=== PATIENT | female | born 1965 | race Caucasian/White ===

== ENCOUNTER 2020-04-03 00:10 | Emergency (ER) | payer MEDICARE, OTHER, SELFPAY ==
[2020-04-03] VITALS (9 sets, daily range): BP systolic 118–149; BP diastolic 64–94; PULSE 83–93; RESP 17–24; TEMP 36.4; O2SAT 94–98
--- NOTE | 2020-04-03 00:17 | DI.CT.S_ITS ---
PROCEDURE: CT HEAD/BRAIN WO CON INDICATIONS: Vertigo and headache TECHNIQUE: Noncontrast 4.5 mm thick angled axial sections acquired from the foramen magnum to the vertex, with coronal and sagittal reformats. For radiation dose reduction, the following was used: automated exposure control, adjustment of mA and/or kV according to patient size. COMPARISON: None. FINDINGS: Image quality: Excellent. CSF spaces: Basal cisterns are patent. No extra-axial fluid collections. Ventricles are normal in size and shape. Brain: No midline shift. No intracranial masses or hemorrhage. Mcwilliams-white matter interface is normal. Skull and face: Calvarium and visualized facial bones are intact, without suspicious lesions. Sinuses: Visualized sinuses and mastoids are clear. IMPRESSION: 1. No acute intracranial process. The above findings are concordant with preliminary report. Dictated by: Indigo Holbrook M.D. on 04/03/2020 at 7:58 Approved by: Indigo Holbrook M.D. on 04/03/2020 at 8:01
--- NOTE | 2020-04-03 00:27 | ED_ITS ---
HPI - General Adult General Chief complaint: Headache Stated complaint: Headache x1day w/ vertigo Time Seen by Provider: 04/03/20 00:12 Source: patient Mode of arrival: EMS Limitations: no limitations History of Present Illness HPI narrative: Patient is a 55-year-old female. Longstanding chronic medical issues to include a heart transplant back in 2014. She is currently on anti- rejection medications. Patient states that she has had headaches in the past especially since her heart transplant. She also states that she has had a stroke in the past. States that the stroke was associated around the time that she had her heart transplant. She stated that they provider. That she potentially had a clot in the LVAD which caused her stroke. She has minimal residual issues from this. She states that last evening about 930 she started having nausea and vertigo. She does describe it as a room spinning sensation. Several hours later she developed a headache. She states that her headache feels just like 1 of her prior headaches. It was not a sudden onset. Denies any fevers per she states that what makes this headache somewhat different is that she is also having vertigo sensation. She has had vertigo in the past but never the to associated together. She stated that if it were not for the 2 being associated give that she would not have come into the emergency department given her prior history of a stroke she was concerned about this and that is why she called 911 to bring her in. she did receive Zofran by EMS prior to arrival. He states that this medication has greatly improved her nausea. She also feels like her vertigo was somewhat improving. Related Data Home Medications Medication Instructions Recorded Confirmed alendronate 70 mg tablet 70 mg PO QWEEK 01/12/19 10/28/19 aspirin 81 mg tablet,delayed 81 mg PO DAILY 01/12/19 10/28/19 release calcium carbonate 500 mg calcium 500 mg PO BID cap 01/12/19 10/28/19 (1,250 mg) capsule cholecalciferol (vitamin D3) 25 1,000 unit PO DAILY 01/12/19 10/28/19 mcg (1,000 unit) capsule clotrimazole 10 mg PO QID 01/12/19 10/28/19 exemestane 25 mg tablet 25 mg PO DAILY 01/12/19 10/28/19 gabapentin 600 mg tablet 600 mg PO TID 01/12/19 10/28/19 leuprolide (3 month) 22.5 mg (3 22.5 mg IM [id number] 01/12/19 10/28/19 month) intramuscular syringe kit magnesium plus protein 133 mg PO DAILY 01/12/19 10/28/19 mycophenolate mofetil 500 mg tablet 1,000 mg PO BID 01/12/19 10/28/19 pantoprazole 40 mg tablet,delayed 40 mg PO DAILY 01/12/19 10/28/19 release potassium chloride 20 mEq 30 meq PO DAILY tab 01/12/19 10/28/19 tablet,extended release pravastatin 20 mg tablet 20 mg PO DAILY 01/12/19 10/28/19 prednisone 10 mg tablet 15 mg PO DAILY tab 01/12/19 10/28/19 sulfamethoxazole 400 1 tab PO DAILY 01/12/19 10/28/19 mg-trimethoprim 80 mg tablet tacrolimus 1 mg capsule 2 mg PO Q12H 01/12/19 10/28/19 tacrolimus 1 mg capsule 2.5 mg PO .QHS cap 01/12/19 10/28/19 torsemide 20 mg tablet 40 mg PO DAILY 01/12/19 10/28/19 Previous Rx's Medication Instructions Recorded sertraline 100 mg tablet 150 mg PO DAILY #45 tab 01/12/19 Allergies Allergy/AdvReac Type Severity Reaction Status Date / Time amiodarone AdvReac Severe lung Verified 06/21/19 13:46 problems long term care administrator carvedilol [From [facility]] AdvReac Severe anaphylaxis Verified 06/21/19 13:46 Review of Systems Constitutional Constitutional: Denies body ache(s), Denies chills, Denies fever(s) and Reports headache(s) Eyes Eyes: Denies change in vision ENT Ears, Nose, Mouth, and Throat: Reports vertigo, Reports headache(s), Reports tinnitus (This is not new) and Denies sinus pain Cardiovascular Cardiovascular: Denies chest pain, Denies rapid heart rate and Denies dyspnea Respiratory Respiratory: Denies dyspnea Gastrointestinal Gastrointestinal: Denies abdominal pain, Reports nausea and Denies vomiting Genitourinary Genitourinary: Denies dysuria Genitourinary: Denies dysuria Musculoskeletal Musculoskeletal: Denies arthralgias and Denies myalgias Integumentary/Breasts Skin/Breast: Denies lesions and Denies rash Neurologic Neurologic: Denies abnormal movements, Denies abnormal speech, Reports vertigo and Reports headache(s) Hematologic/Lymphatic Hematologic/Lymphatic: Denies easy bleeding and Denies easy bruising Allergic/Immunologic Allergic/Immunologic: Denies urticaria Patient History Medical History Breast cancer (Acute) Chemotherapy-induced cardiomyopathy (Acute) Heart transplant recipient (Acute) Insomnia (Chronic) Obesity (BMI 30-39.9) (Chronic) Obstructive sleep apnea (Chronic) Surgical History (Updated 10/28/19 @ 22:59 by KEYSHAWN Lopez) History of left ventricular assist device (LVAD) (Acute) Social History Smoking Status: Former smoker Smoking Status: Former smoker Exam Initial Vital Signs Initial Vital Signs: Vital Signs Temperature 97.6 F 04/03/20 00:17 Pulse Rate 90 04/03/20 00:17 Respiratory Rate 20 04/03/20 00:17 Blood Pressure 131/77 04/03/20 00:17 Pulse Oximetry 97 04/03/20 00:17 Const General: cooperative, comfortable and well developed Limitations: mental status not altered HENLA Head: normal to inspection and normocephalic Nose: external nose normal Eyes General: appearance normal, both eyes and all related structures Pupils: PERRL EOM: EOM intact bilaterally Resp Effort & Inspection: normal respiratory effort Auscultation: clear to auscultation bilaterally Cardio Rate: regular rate Rhythm: regular rhythm GI Inspection: non-distended Palpation: soft Skin Lesions: no lesions Rashes: no rashes Neuro General: patient alert, patient awake and patient oriented x3 Cranial Nerves: CN's II-XI intact bilaterally Cognition: normal cognition Speech: speech normal Motor: muscle tone normal throughout Sensory Exam: no sensory deficits noted Extrem General: normal to inspection and capillary refill normal Psych Appearance: grossly normal and well kempt Scores GCS [place] coma scale eye opening: Spontaneous [place] coma scale verbal response: Orientated [place] coma scale motor response: Obey commands [place] coma scale total score: 15 NIH Stroke Scale Level of Conciousness: Alert, keenly responsive Ask month/age: Answers both questions correctly. Open/close eyes, close hand: Performs both tasks correctly Best gaze horizontal: Normal Visual louise: No visual loss Facial palsy: Normal symetrical movement Left arm drift: No drift for full 10 sec Right arm drift: No drift for full 10 sec Left leg drift: No drift for full 10 sec Right leg drift: No drift for full 10 sec Limb ataxia: Absent Sensory on face/arms/legs: Normal, no sensory loss Best language: No aphasia, normal Dysarthria: Normal Extinction or inattention: No abnormality Total NIH Stroke scale score: 0 Course Orders Ordered: ED Orders 04/03/20 00:17 CT head/brain wo con Stat 04/03/20 00:28 EKG-12 Lead Stat 04/03/20 00:45 Complete Blood Count AUTO DIFF Stat Comprehensive Metabolic Panel Stat Partial Thromboplastin Time Stat Prothrombin Time INR Stat Discontinued Medications Diphenhydramine HCl (Benadryl) 25 mg IV NOW ONE Stop: 04/03/20 00:28 Last Admin: 04/03/20 00:42 Dose: 25 mg Documented by: GRACIA Metoclopramide HCl (Reglan) 10 mg IV NOW ONE Stop: 04/03/20 00:28 Last Admin: 04/03/20 00:42 Dose: 10 mg Documented by: GRACIA Vital Signs Vital signs: Vital Signs - 8 hr 04/03/20 00:17 04/03/20 00:23 04/03/20 00:30 Temperature 97.6 F Pulse Rate 90 83 84 Respiratory Rate 20 Blood Pressure 131/77 Pulse Oximetry 97 98 97 04/03/20 01:03 04/03/20 01:05 04/03/20 01:30 Temperature Pulse Rate 92 H 93 H 93 H Respiratory Rate 24 18 Blood Pressure 149/94 H Pulse Oximetry 98 96 94 04/03/20 01:31 04/03/20 02:00 04/03/20 02:59 Temperature Pulse Rate 92 H 91 H Respiratory Rate 17 24 Blood Pressure 118/64 122/72 118/64 Pulse Oximetry 94 96 Medical Decision Making Lab Data Lab results reviewed: Yes I reviewed the patient's lab results. Result diagrams: 04/03/20 00:45 04/03/20 00:45 Labs: Lab Results 04/03/20 04/03/20 04/03/20 Range/Units 00:45 00:45 00:45 WBC 9.6 (4.5-11.0) X10^3/uL RBC 3.71 L (4.0-5.2) X10^6/uL Hgb 11.4 L (12.0-16.0) g/dL Hct 33.7 L (36-46) % MCV 90.8 (80-100) fL MCH 30.6 (26-34) PG MCHC 33.7 (30-36) % RDW 12.9 (11.6-14.8) % Plt Count 239 (150-400) X10^3/uL Neut % (Auto) 79.1 H (50-75) % Lymph % (Auto) 12.3 L (25-40) % [place] % (Auto) 5.8 (3-14) % Eos % (Auto) 1.6 L (2-4) % Baso % (Auto) 1.2 (0-2) % Neut # (Auto) 7600 H (4094-0899) /uL Lymph # (Auto) 1200 (5648-0037) /uL [place] # (Auto) 600 (0-900) /uL Eos # (Auto) 200 (0-450) /uL Baso # (Auto) 100 (0-100) /uL PT 11.3 (10.1-12.7) SECONDS INR 1.0 (0.9-1.3) APTT 31 (26.4-36.2) SECONDS Sodium 137 (137-145) mmol/L Potassium 3.9 (3.4-5.1) mmol/L Chloride 103 (98-107) mmol/L Carbon Dioxide 26 (22-32) mmol/L BUN 40 H (7-17) mg/dL Creatinine 1.44 H (0.52-1.04) mg/dL Estimated GFR 38.1 L (>60) mL/min BUN/Creatinine Ratio 27.8 H (6-22) Glucose 122 H (70-100) mg/dL Calcium 9.4 (8.4-10.2) mg/dL Total Bilirubin 0.4 (0.2-1.3) mg/dL AST 25 (14-36) IU/L ALT 16 (<35) IU/L Alkaline Phosphatase 66 (38-126) U/L Total Protein 7.1 (6.3-8.2) g/dL Albumin 4.2 (3.5-5.0) g/dL Globulin 2.9 (1.7-4.1) g/dL Albumin/Globulin Ratio 1.4 (1.0-2.8) Imaging Data CT scan - head: Radiologist's Impression: No acute abnormalities ECG Data Attestation: I personally reviewed and interpreted this ECG as follows: Prior ECG tracings: not available for review Interpretation: Sinus rhythm Ventricular rate 83 Normal axis Normal QRS Normal QTC No ST T wave changes MDM Narrative Medical decision making narrative: Patient's symptoms seem to be improving since the onset earlier this evening. Her vertigo was positional. She could reproduce it by laying her head back. I was better when she was sitting up. She has a normal neurologic exam otherwise. Her head CT was unremarkable. Rickie camacho reports a vast improvement of her headache and almost complete resolution of her symptoms after further medications here in the ER. Low suspicion for CVA. Low suspicion for TIA. Low suspicion for subarachnoid hemorrhage. Patient states she feels comfortable going home. She was given return precautions and follow-up instructions. She expressed understanding and agreement. Discharge Plan Departure Patient Disposition: Home Clinical Impression: Vertigo Migraine Qualifiers: Migraine type: unspecified Status migrainosus presence: without status migrainosus Intractability: not intractable Qualified Code(s): G43.909 - Migraine, unspecified, not intractable, without status migrainosus Discharge Date/Time: 04/03/20 03:01 Instructions: DI for Migraine Activity Restrictions/Additional Instructions: Continue to take all of your medications as directed. Contact your primary provider for follow-up. Return to the emergency department for any new or wor sening symptoms Prescriptions: No Action prednisone 10 mg tablet 15 mg PO DAILY RF: 0 gabapentin 600 mg tablet 600 mg PO TID RF: 0 torsemide 20 mg tablet 40 mg PO DAILY RF: 0 sulfamethoxazole-trimethoprim 400-80 mg tablet 1 tab PO DAILY RF: 0 calcium carbonate 500 mg calcium (1,250 mg) capsule 500 mg PO BID RF: 0 alendronate 70 mg tablet 70 mg PO QWEEK RF: 0 aspirin 81 mg tablet,delayed release (DR/EC) 81 mg PO DAILY RF: 0 mycophenolate mofetil 500 mg tablet 1,000 mg PO BID RF: 0 exemestane 25 mg tablet 25 mg PO DAILY RF: 0 pantoprazole 40 mg tablet,delayed release (DR/EC) 40 mg PO DAILY RF: 0 Lupron Dep[place] (3 month) 22.5 mg syringe kit 22.5 mg IM [id number] RF: 0 pravastatin 20 mg tablet 20 mg PO DAILY RF: 0 tacrolimus 1 mg capsule 2 mg PO Q12H RF: 0 tacrolimus 1 mg capsule 2.5 mg PO .QHS RF: 0 cholecalciferol (vitamin D3) 1,000 unit capsule 1,000 unit PO DAILY RF: 0 potassium chloride 20 mEq tablet extended release 30 meq PO DAILY RF: 0 clotrimazole tablet 10 mg PO QID RF: 0 magnesium plus protein 133 mg PO DAILY RF: 0 sertraline 100 mg tablet 150 mg PO DAILY Qty: 45 RF: 3 Referrals: Shawn Chance MD [Primary Care Provider] -
[2020-04-03] MEDS: METOCLOPRAMIDE 10 MG/2 ML INJ IV (00:42)
[2020-04-03] MEDS: diphenhydrAMINE 50 MG/ML VIAL 25 MG IV (00:42)
[2020-04-03 00:59] LABS: Add Manual Diff / Slide Review NO; Basophils Absolute Auto 100 /uL (0-100); Basophils Percent Auto 1.2 % (0-2); Eosinophils Absolute Auto 200 /uL (0-450); Eosinophils Percent Auto 1.6 % (2-4); Hematocrit 33.7 % (36-46); Hemoglobin 11.4 g/dL (12.0-16.0); Lymphocytes Absolute Auto 1200 /uL (1100-4500); Lymphocytes Percent Auto 12.3 % (25-40); Mean Corpuscular HGB Conc 33.7 % (30-36); Mean Corpuscular Hemoglobin 30.6 PG (26-34); Mean Corpuscular Volume 90.8 fL (80-100); Monocytes Absolute Auto 600 /uL (0-900); Monocytes Percent Auto 5.8 % (3-14); Neutrophils Absolute Auto 7600 /uL (1500-7000); Neutrophils Percent Auto 79.1 % (50-75); Platelet Count 239 X10^3/uL (150-400); Red Blood Cell Count 3.71 X10^6/uL (4.0-5.2); Red Cell Distribution Width 12.9 % (11.6-14.8); White Blood Cell Count 9.6 X10^3/uL (4.5-11.0)
--- NOTE | 2020-04-03 01:03 | PC.NURSE ---
I spoke with Usman from [facility] in [place] for [id number]. He stated he would contact their provider and be in touch with DCR.
[2020-04-03 01:06] LABS: Alanine Aminotransferase 16 IU/L (<35); Albumin 4.2 g/dL (3.5-5.0); Albumin Globulin Ratio 1.4 (1.0-2.8); Alkaline Phosphatase 66 U/L (38-126); Aspartate Aminotransferase 25 IU/L (14-36); BUN Creatinine Ratio 27.8 (6-22); Bilirubin Total 0.4 mg/dL (0.2-1.3); Blood Urea Nitrogen 40 mg/dL (7-17); Calcium 9.4 mg/dL (8.4-10.2); Carbon Dioxide 26 mmol/L (22-32); Chloride 103 mmol/L (98-107); Estimated Glomerular Filt Rate 38.1 mL/min (>60); Globulin 2.9 g/dL (1.7-4.1); Glucose 122 mg/dL (70-100); HEMOLYSIS < 15 (0-50); Potassium 3.9 mmol/L (3.4-5.1); Sodium 137 mmol/L (137-145); Total Protein 7.1 g/dL (6.3-8.2)
[2020-04-03 01:09] LABS: Prothrombin Time 11.3 SECONDS (10.1-12.7)
[2020-04-03 01:12] LABS: PTT Partial Thromboplastin Tim 31 SECONDS (26.4-36.2)
== END 2020-04-03 03:01 | disposition home or self-care (01) ==
PROVIDERS: Emergency Provider Emergency Medicine; PCP Internal Medicine Hematology & Oncology
DX: G43.909 Migraine, unspecified, not intractable, without status migrainosus (principal); R42 Dizziness and giddiness; R11.0 Nausea; R07.9 Chest pain, unspecified
CPT/HCPCS: 36415; 70450; 80053; 85025; 85610; 85730; 93005; 93010; 96374; 96375; 99284; J1200; J2765

== ENCOUNTER → 2020-08-02 14:05 | Outpatient (CLI) | payer MEDICARE, OTHER, SELFPAY ==
--- NOTE | 2020-08-02 | DI.MRI.S_ITS ---
PROCEDURE: MR LUMBAR SPINE WO CON INDICATIONS: Unspecified inflammatory spondylopathy, lumbar region TECHNIQUE: Noncontrast sagittal T1 spin echo and T2 fast echo, sagittal STIR, axial T1 and T2 fast spin echo through the lumbar spine. In cases with scoliosis, additional coronal T2 fast spin echo may be performed. COMPARISON: None FINDINGS: Image quality: Excellent. Alignment and Curvature: There is a transitional element at L5. Recommend correlation with plain films, as well as the montage panel of the current examination for numbering purposes, prior to any lumbar spinal intervention. There is mild, grade 1 anterolisthesis of L3 on L4. Bone Marrow: Marrow is of normal overall signal. No acute vertebral body compression fractures. Mild reactive signal within the endplates adjacent to the T11-T12, L3-L4 and L4-L5 intervertebral discs. Spinal Cord: Conus medullaris terminates at the upper L1 level. Visualized cord demonstrates normal signal and size. Paraspinous Soft Tissues: No paravertebral masses. L1-L2: Mild facet hypertrophy. Mild epidural lipomatosis. Mild canal stenosis. No foraminal stenosis. L2-L3: Mild disc desiccation and diffuse disc bulge. Mild bilateral facet hypertrophy and epidural lipomatosis. Mild canal stenosis. Mild bilateral foraminal stenosis. L3-L4: Mild disc desiccation and diffuse disc bulge. Moderate bilateral facet hypertrophy. Mild epidural lipomatosis. Mild canal stenosis. Mild bilateral foraminal stenosis. L4-L5: Moderate disc height loss and desiccation. Mild diffuse disc bulge/osteophyte. Mild bilateral facet hypertrophy. Mild canal stenosis. Moderate subarticular foraminal stenosis bilaterally. L5-S1: Rudimentary intervertebral disc. No significant canal, or foraminal stenosis. IMPRESSION: 1. 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 Recommend correlation with plain films, as well as the montage panel of the current examination for numbering purposes, prior to any lumbar spinal intervention. 2. Multilevel degenerative disc and facet disease, as well as ligamentum flavum hypertrophy and epidural lipomatosis. 3. Mild multilevel canal stenosis. 4. Multilevel foraminal stenoses, worst at L4-L5 bilaterally where there are moderate foraminal stenoses present. Dictated by: Zina Allen M.D. on 08/02/2020 at 15:20 Approved by: Zina Allen M.D. on 08/02/2020 at 15:26
== END ==
PROVIDERS: PCP Nurse Practitioner; Referring Provider Nurse Practitioner; Visit Provider Nurse Practitioner
DX: M46.96 Unspecified inflammatory spondylopathy, lumbar region (principal); M51.06 Intervertebral disc disorders with myelopathy, lumbar region; M48.061 Spinal stenosis, lumbar region without neurogenic claudication; E88.2 Lipomatosis, not elsewhere classified
CPT/HCPCS: 72148